=== PATIENT | male | born 1945 | race Two or more races ===

== ENCOUNTER → 2016-11-14 | Outpatient (CLI) | payer OTHER ==
[~2016-11-14] MED LIST: IOPAMIDOL (ISOVUE-300) 100 ML BTL ONE
== END ==
LOC: CIMAGING 10:20
PROVIDERS: ATTEND Family Medicine
DX: R10.9 Unspecified abdominal pain (principal); K86.9 Disease of pancreas, unspecified; J90 Pleural effusion, not elsewhere classified; E27.9 Disorder of adrenal gland, unspecified; M51.36 Other intervertebral disc degeneration, lumbar region; M25.519 Pain in unspecified shoulder; J06.9 Acute upper respiratory infection, unspecified; Z85.528 Personal history of other malignant neoplasm of kidney; Z90.5 Acquired absence of kidney
CPT/HCPCS: 74177; Q9967

== ENCOUNTER 2016-11-19 14:29 | Day surgery (SDC) | payer OTHER ==
[2016-11-19] MEDS ORDERED: LIDOCAINE 1% 2 ML INJ ID PRN (14:55)
[2016-11-19] MEDS ORDERED: NS 1,000 ML IV ONE (14:55)
[2016-11-19 15:08] VITALS: PULSE 78
--- NOTE | 2016-11-19 16:38 | PDANEPAE ---
ANE Review of Systems - Exercise capacity Exercise capacity: >=4 METS - Systems Genitourinary: Reports: other (Nephrectomy for cancer 2007) ANE Patient History - Home Medications Home medications: home medication list seen and reviewed - NPO status NPO Since - Liquids (Date): 11/19/16 NPO Since - Liquids (Time): 07:30 NPO Since - Solids (Date): 11/18/16 NPO Since - Solids (Time): 19:00 - Anes Hx Anes Hx: no prior problems - Smoking Hx Smoking Status: Never smoked ANE Labs/Vital Signs - Vital Signs Blood Pressure: 118/74 Heart Rate: 78 Respiratory Rate: 15 O2 Sat (%): 94 Height: 165.1 cm Weight: 95.254 kg ANE Physical Exam - Airway Mallampati Score: Class 3 Mouth exam: normal dental/mouth exam - Pulmonary Pulmonary: no respiratory distress, no rales or rhonchi, clear to auscultation - Cardiovascular Cardiovascular: regular rate and rhythym, no murmur, rub, or gallop - ASA Status ASA Status: II ANE Anesthesia Plan Anesthesia Plan: MAC
--- NOTE | 2016-11-19 16:38 | PDGENHP ---
History & Physical Chief Complaint: abnl imaging History of Present Illness: 70 year old male presents for panc lesion in body of pancreas Pertinent Past, Social, Family History: SoHx: no cigs. FaMHx; No hx panc ca. PMHx: obesity, solitary kidney Relevant Physical Exam: HEENT: anicteric sclera. CV: RRR +s1s2. Lungs: CTAB No w/r/r. Abd: soft, nt, + bs. No g/r. Ext: No c/c/e Cardiorespiratory Assessment: asa 2
[2016-11-19] MEDS ORDERED: ONDANSETRON 4 MG/2 ML VIAL IVP PRN (16:43)
[2016-11-19] MEDS ORDERED: ACETAMINOPHEN 500 MG TAB PO PRN (16:43)
[2016-11-19] MEDS ORDERED: NALOXONE HCL 0.4 MG/ML INJ IVP PRN (16:43)
[2016-11-19] MEDS ORDERED: PROPOFOL 200 MG/20 ML VIAL ONE (16:44)
[2016-11-19] MEDS ORDERED: NS 500 ML IV SCH (16:45)
[2016-11-19] MEDS ORDERED: PROPOFOL/EMULSION 500 MG/50 ML BOTTLE IV ONE (16:58)
--- NOTE | 2016-11-19 17:19 | POSTOPPROG ---
Post Op Note Date of Operation: 11/19/16 Surgeon: Boogie Arellano Anesthesia: IV Sedation Pre-op Diagnosis: abnl imaging Post-op Diagnosis: abnl imaging, irregular Z-line, gastritis Indication: abnl imgaing Procedure: EGD with bx, Eus with FNA Findings: gastritis, irreg Z-line Inf/Abcess present in the surg proc area at time of surgery?: No
[2016-11-19 17:43] VITALS: TEMP 97.5
--- NOTE | 2016-11-19 17:45 | POSTANESTH ---
Post Anesthetic Evaluation Cardiovascular Status: Normal, Stable, Similar to Pre-Op Cond Respiratory Status: Normal, Stable, Similar to Pre-op Cond. Level of Consciousness/Mental Status: Can Participate in Eval, Moderately Sleepy Pain Control: Adequate, Prn Tx Ordered Nausea/Vomiting Control: Adequate, Prn Tx Ordered Complications Possibly Related to Anesthesia: None Noted
[2016-11-19 18:07] VITALS: RESP 18
[2016-11-19 19:03] VITALS: BP 110/70; O2SAT 96
--- NOTE | 2016-11-20 03:26 | GPN ---
[f rep st] PROCEDURE NOTE DATE OF PROCEDURE: 11/19/2016 PROCEDURE: Esophagogastroduodenoscopy with biopsy, endoscopic ultrasound with fine-needle aspiration. INDICATION: The patient is a 70-year-old male who presents for evaluation of abnormal imaging. He had a recent CT scan which revealed a lesion in the pancreatic body. CONSENT: Risks, benefits, and alternatives of the procedure were discussed in great detail with the patient. Risks of infection, bleeding, perforation, pancreatitis, and sedation were discussed. All questions answered. Informed consent was obtained. MEDICATIONS: Propofol. Please see Anesthesia records for details. ESTIMATED BLOOD LOSS: Insignificant. ESOPHAGOGASTRODUODENOSCOPY EXAMINATION: The Olympus upper endoscope was inserted into the mouth and advanced to the esophagus. The proximal and mid esophagus was normal in appearance. An irregular Z-line was noted with a tongue of columnar appearing epithelium extending into the esophagus by about 1.5cms. Biopsies taken. The stomach was entered and closely examined including retroflexed views of the angularis, cardia and fundus. A hiatal hernia was noted. The mucosa in the antrum and body of the stomach was erythematous in a patchy distribution and biopsies were taken. The duodenal bulb and second portion of the duodenum were normal in appearance. ENDOSCOPIC ULTRASOUND EXAMINATION: The Olympus linear echoendoscope was introduced into the mouth and advanced to the 2nd portion of the duodenum. The pancreas was carefully examined from the uncinate process to the tail where the spleen was seen. The pancreas was noted to have hyperechoic foci as well as dilated side branches. The pancreatic duct wall was hyperechoic. The pancreatic duct was dilated to 4 mm in the body. In the body, close to the splenic artery and vein, a 1.5 x 1.5 cm hypoechoic lesion was noted. There may be small cysts versus dilated pancreatic side branches noted. It did have an appearance consistent with a serous cystadenoma? Doppler was used to rule out intervening vessels. One transgastric pass was made into the lesion with a 25 gauge needle. Cytology was present and adequate cellularity was confirmed. Preliminary report reveals only benign cells. The common bile duct was seen and was without stone, stricture or stenosis. No liver mass was appreciated. No suspicious periportal, peripancreatic or perigastric nodes appreciated. IMPRESSION/RECOMMENDATIONS: 1. Lesion in the pancreatic body -- suspect serous cystadenoma versus other ? Fine needle aspiration performed. 2. Parenchymal changes in the pancreas. 3. Gastritis- status post biopsy. 4. Irregular Z-line. Oliveira's? Biopsies taken. RECOMMENDATIONS: 1. Follow up on biopsy and FNA results. 2. Consider MRI with MRCP. 3. Clear liquid diet till tomorrow. 4. Continue previous medications. /[id number]/MODL MTDD
== END 2016-11-19 18:30 | disposition home or self-care (01) ==
LOC: FSGY 14:29
PROVIDERS: ATTEND Internal Medicine Gastroenterology
PROC: 0FBG4ZX Excision of Pancreas, Percutaneous Endoscopic Approach, Diagnostic (ICD-10-PCS; principal; 2016-11-19 16:00)
DX: D13.6 Benign neoplasm of pancreas (principal); E66.9 Obesity, unspecified; Q60.0 Renal agenesis, unilateral; K29.70 Gastritis, unspecified, without bleeding
CPT/HCPCS: J2704

== ENCOUNTER → 2017-01-03 | Outpatient (CLI) | payer OTHER ==
[~2017-01-03] MED LIST changes: +GADOBUTROL 10 ML VIAL IVP ONE; -IOPAMIDOL (ISOVUE-300) 100 ML BTL ONE
== END ==
LOC: FIMAGING 15:59
PROVIDERS: ATTEND Internal Medicine Gastroenterology
DX: K86.89 Other specified diseases of pancreas (principal)
CPT/HCPCS: 74183; A9585